=== PATIENT | male | born 1940 ===

== ENCOUNTER 2023-02-26 10:13 | Inpatient (IN) ==
[2023-02-26] MEDS ORDERED: Heparin 1,000 UNIT/ML 10 ml (10,000 UNITS) CATHLAB/DIALYSIS ONE ×2 (10:33→11:22)
[2023-02-26] MEDS ORDERED: Heparin 2 UNITS/ML 1000 mls 3,000 ML IV ONE (10:33)
[2023-02-26] MEDS ORDERED: Lidocaine 1% MPF 5 ML VIAL ONE (10:34)
[2023-02-26] MEDS ORDERED: niCARdipine 0.1MG/ML IVPREMIX 20 MG/200 ML BAG IV ONE (10:34)
[2023-02-26] MEDS ORDERED: nitroGLYCERIN DRIP 25,000 MCG/250 ML BTL ONE (10:34)
[2023-02-26] MEDS ORDERED: Iohexol 350 (CONTRAST) 200 ML MDV IV ONE (10:35)
[2023-02-26] MEDS ORDERED: fentaNYL 100 mcg/2 ml 50 MCG/ML VIAL ONE (10:35)
[2023-02-26] MEDS ORDERED: Midazolam 5 mg/5 ml VIAL 1 mg/ml 5 ml VIAL (5 mg) ONE (10:35)
[2023-02-26] MEDS ORDERED: Iohexol 350 (CONTRAST) 100 ML PAK IV ONE ×2 (10:35→12:50)
[2023-02-26] MEDS ORDERED: Midazolam 10 mg/10 ml VIAL 1 mg/ml 10 ml VIAL (10 mg) IV SLOW PU ONE (10:41)
[2023-02-26] MEDS ORDERED: Naloxone 0.4 mg VIAL 0.4 mg/ml 1 ml VIAL IV PUSH PRN (10:41)
[2023-02-26] MEDS ORDERED: fentaNYL 100 mcg/2 ml 50 MCG/ML VIAL IV SLOW PU ONE (10:41)
[2023-02-26] MEDS ORDERED: Flumazenil 0.5 mg/5 ml 0.1 MG/ML 5 ml VIAL IV PRN (10:41)
[2023-02-26] MEDS ORDERED: Atropine 0.1 MG/ML 10 ml SYR (1 mg) ONE ×2 (11:06→14:32)
[2023-02-26] MEDS ORDERED: Eptifibatide IV (Load dose) 2 MG/ML 10 ml VIAL ONE ×2 (11:31→11:47)
[2023-02-26] MEDS ORDERED: Nitroglycerin 0.6 mg TAB SL PRN (13:24)
[2023-02-26] MEDS ORDERED: Atropine 1 MG/ML INJ 1 ML VIAL IV PUSH PRN (13:24)
[2023-02-26] MEDS ORDERED: Ondansetron 4 mg VIAL 2 MG/ML 2 ml VIAL IV PRN (13:24)
[2023-02-26] MEDS ORDERED: Dextrose 50% Syringe 50 ml 25 GM/50 ML SYRINGE IV PUSH PRN (14:34)
[2023-02-26 14:45] LABS: High Sensitivity Troponin 1 Hr > 24000 pg/mL (<20)
[2023-02-26 14:52] LABS: Anion Gap 7 mmol/L (2-16); Blood Urea Nitrogen 65 mg/dL (6-24); CO2 Carbon Dioxide 20 mmol/L (22-32); Calcium 7.8 mg/dL (8.6-10.3); Chloride 111 mmol/L (101-111); Creatinine, Serum 1.49 mg/dL (0.67-1.17); Glucose 135 mg/dL (70-100); Magnesium 2.2 mg/dL (1.9-2.7); Phosphorus 4.1 mg/dL (2.5-5.0); Potassium 4.3 mmol/L (3.5-5.0); Sodium 138 mmol/L (135-145)
[2023-02-26] MEDS ORDERED: Remdesivir 100 mg Vial 200 MG in NS 0.9% 250 ml 210 ML IV ONE (16:15)
[2023-02-26 16:16] LABS: INR 1.48 (0.88-1.18)
[2023-02-26 16:28] LABS: Magnesium 2.3 mg/dL (1.9-2.7); Phosphorus 4.2 mg/dL (2.5-5.0)
[2023-02-26 17:11] LABS: TSH Ultra Thyroid Stim Horm 1.34 mcIU/mL (0.34-5.60)
[2023-02-26] MEDS: Lactated Ringers 1000 ml BAG 1,000 ML IV SCH (20:10)
[2023-02-26] MEDS: Heparin 5000 UNITS/ML 1 mL VIAL SUBCUT SCH (21:24)
[2023-02-27 03:45] LABS: Hematocrit 33.5 % (38-53); Hemoglobin 11.4 g/dL (13.2-16.3); Mean Corpuscular Hemoglobin 31.1 pg (27-33); Mean Corpuscular Hgb Conc 34.1 g/dL (31-36); Mean Corpuscular Volume 91.1 fL (80-97); Mean Platelet Volume 8.3 fL (7.5-11.2); Platelet Count 152 10^3/uL (150-450); Red Blood Count 3.68 10^6/uL (4.06-5.63); Red Cell Distribution Width 16.3 % (12-17); White Blood Count 12.4 10^3/uL (3.6-10.2)
[2023-02-27 03:50] LABS: INR 1.43 (0.88-1.18)
[2023-02-27 03:59] LABS: Magnesium 2.2 mg/dL (1.9-2.7); Phosphorus 3.4 mg/dL (2.5-5.0)
[2023-02-27 04:01] LABS: Albumin 3.3 g/dL (3.2-5.2); Albumin/Globulin Ratio 1.7 (1-3); Calcium 8.3 mg/dL (8.6-10.3); Creatinine, Serum 1.01 mg/dL (0.67-1.17); Globulin 1.9 g/dL (2-4); HDL Cholesterol 35.5 mg/dL; Total Bilirubin 0.4 mg/dL (0.2-1.0); Total Protein 5.2 g/dL (6.4-8.9); eGFR CKD-EPI 73.3 (>60)
[2023-02-27 04:22] LABS: ABS Basophils 0.1 10^3/uL (0.0-0.1); ABS Monocytes 1.7 10^3/uL (0.0-1.1); ABS Neutrophils 9.6 10^3/uL (1.5-7.6); ABS Nucleated RBC 0.06 10^3/ul; Eosinophil % 0.1 %; Lymphocyte % 8.4 %; Nucleated Red Blood Cells % 0.5 /100 WBC (0.0-0.4)
[2023-02-27] MEDS ORDERED: Acetaminophen IV 1 GM/100ML 1,000 MG/100 ML BAG IV PRN (04:41)
[2023-02-27] MEDS: Heparin 5000 UNITS/ML 1 mL VIAL SUBCUT SCH (05:27)
[2023-02-27] MEDS: Lactated Ringers 1000 ml BAG 1,000 ML IV SCH (06:00)
[2023-02-27] MEDS ORDERED: Heparin 5000 UNITS/ML 1 mL VIAL IV SCH (12:00)
[2023-02-27 13:22] LABS: ABS Lymphocytes 0.8 10^3/uL (1.0-4.8); ABS Monocytes 1.3 10^3/uL (0.0-1.1); ABS Neutrophils 7.9 10^3/uL (1.5-7.6); ABS Nucleated RBC 0.01 10^3/ul; Eosinophil % 0.1 %; Hematocrit 33.2 % (38-53); Hemoglobin 11.3 g/dL (13.2-16.3); Lymphocyte % 8.3 %; Mean Corpuscular Hemoglobin 31.8 pg (27-33); Mean Corpuscular Hgb Conc 34.1 g/dL (31-36); Mean Corpuscular Volume 93.2 fL (80-97); Nucleated Red Blood Cells % 0.1 /100 WBC (0.0-0.4); Platelet Count 142 10^3/uL (150-450); Red Blood Count 3.56 10^6/uL (4.06-5.63); Red Cell Distribution Width 16.3 % (12-17); White Blood Count 10.1 10^3/uL (3.6-10.2)
[2023-02-27] MEDS: Heparin DRIP 25,000 UNITS BAG 25,000 UNITS/500 ML BAG IV SCH (13:29)
[2023-02-27 13:36] LABS: Creatinine, Serum 0.84 mg/dL (0.67-1.17)
[2023-02-27] MEDS ORDERED: NS 0.9% 250 ml 250 ML IV ONE (15:10)
[2023-02-27] MEDS ORDERED: Atropine 0.1 MG/ML 10 ml SYR (1 mg) IV PUSH PRN (15:18)
[2023-02-27] MEDS ORDERED: Lactated Ringers 1000 ml BAG 1,000 ML IV ONE (15:52)
[2023-02-27] MEDS ORDERED: Benzocaine (plain) Lozenge 15 MG PO PRN (20:25)
[2023-02-27] MEDS: Remdesivir 100 mg Vial 100 MG in NS 0.9% 250 ml 230 ML IV SCH (20:36)
[2023-02-28 05:57] LABS: ABS Basophils 0.1 10^3/uL (0.0-0.1); ABS Eosinophils 0.1 10^3/uL (0.0-0.5); ABS Monocytes 1.2 10^3/uL (0.0-1.1); ABS Neutrophils 6.4 10^3/uL (1.5-7.6); ABS Nucleated RBC 0.01 10^3/ul; Eosinophil % 0.8 %; Hematocrit 30.4 % (38-53); Hemoglobin 10.6 g/dL (13.2-16.3); Mean Corpuscular Hemoglobin 31.6 pg (27-33); Mean Corpuscular Hgb Conc 34.7 g/dL (31-36); Mean Corpuscular Volume 91.1 fL (80-97); Mean Platelet Volume 7.8 fL (7.5-11.2); Nucleated Red Blood Cells % 0.2 /100 WBC (0.0-0.4); Platelet Count 140 10^3/uL (150-450); Red Blood Count 3.34 10^6/uL (4.06-5.63); Red Cell Distribution Width 16.3 % (12-17); White Blood Count 8.6 10^3/uL (3.6-10.2)
[2023-02-28 06:08] LABS: INR 1.61 (0.88-1.18)
[2023-02-28 06:15] LABS: Albumin 2.9 g/dL (3.2-5.2); Albumin/Globulin Ratio 1.6 (1-3); Calcium 7.7 mg/dL (8.6-10.3); Creatinine, Serum 0.71 mg/dL (0.67-1.17); Globulin 1.8 g/dL (2-4); Potassium 3.6 mmol/L (3.5-5.0); Total Bilirubin 0.6 mg/dL (0.2-1.0); Total Protein 4.7 g/dL (6.4-8.9); eGFR CKD-EPI 90.5 (>60)
[2023-02-28] MEDS ORDERED: Potassium Chlor 20 meq TAB.ER PO ONE (08:56)
[2023-02-28] MEDS: Heparin DRIP 25,000 UNITS BAG 25,000 UNITS/500 ML BAG IV SCH (13:25)
[2023-02-28] MEDS: Remdesivir 100 mg Vial 100 MG in NS 0.9% 250 ml 230 ML IV SCH (22:33)
[2023-03-01 04:32] LABS: ABS Eosinophils 0.1 10^3/uL (0.0-0.5); ABS Lymphocytes 0.9 10^3/uL (1.0-4.8); ABS Monocytes 1.2 10^3/uL (0.0-1.1); ABS Neutrophils 6.4 10^3/uL (1.5-7.6); ABS Nucleated RBC 0.01 10^3/ul; Hematocrit 33.2 % (38-53); Hemoglobin 11.3 g/dL (13.2-16.3); Lymphocyte % 10.8 %; Mean Corpuscular Hgb Conc 34.2 g/dL (31-36); Mean Corpuscular Volume 93.6 fL (80-97); Mean Platelet Volume 7.6 fL (7.5-11.2); Nucleated Red Blood Cells % 0.1 /100 WBC (0.0-0.4); Platelet Count 157 10^3/uL (150-450); Red Blood Count 3.55 10^6/uL (4.06-5.63); Red Cell Distribution Width 16.3 % (12-17); White Blood Count 8.6 10^3/uL (3.6-10.2)
[2023-03-01 04:44] LABS: INR 1.53 (0.88-1.18)
[2023-03-01 04:51] LABS: Albumin 3.1 g/dL (3.2-5.2); Albumin/Globulin Ratio 1.7 (1-3); Calcium 7.8 mg/dL (8.6-10.3); Creatinine, Serum 0.76 mg/dL (0.67-1.17); Globulin 1.8 g/dL (2-4); Potassium 3.8 mmol/L (3.5-5.0); Total Bilirubin 0.7 mg/dL (0.2-1.0); Total Protein 4.9 g/dL (6.4-8.9); eGFR CKD-EPI 88.6 (>60)
[2023-03-01] MEDS ORDERED: Potassium Chlor 20 meq TAB.ER PO ONE (05:27)
[2023-03-01] MEDS ORDERED: ceFAZolin 2 GM in NS PREMIX 2 GM/100 ML BAG IVPB ONE (10:11)
[2023-03-01] MEDS ORDERED: NS 0.9% 1000 ml BAG 1,000 ML IV SCH ×2 (10:15→17:45)
[2023-03-01 10:30] LABS: Magnesium 1.9 mg/dL (1.9-2.7)
[2023-03-01] MEDS ORDERED: ceFAZolin 2 GM/50 ML BAG IV ONE (11:00)
[2023-03-01] MEDS ORDERED: Heparin 5000 UNITS/ML 1 mL VIAL IV SCH (11:00)
[2023-03-01] MEDS: Heparin DRIP 25,000 UNITS BAG 25,000 UNITS/500 ML BAG IV SCH (12:05)
[2023-03-01] MEDS ORDERED: Haloperidol 5 mg/ml SDV IV/IM 5 MG/ML AMP ONE ×2 (20:16→21:40)
[2023-03-01] MEDS ORDERED: Haloperidol 5 mg/ml SDV IV/IM 5 MG/ML AMP IV SLOW PU ONE (20:30)
[2023-03-01] MEDS: Remdesivir 100 mg Vial 100 MG in NS 0.9% 250 ml 230 ML IV SCH (21:15)
[2023-03-01] MEDS: Haloperidol 5 mg/ml SDV IV/IM 5 MG/ML AMP IV SLOW PU PRN (21:50)
[2023-03-02] MEDS: Heparin DRIP 25,000 UNITS BAG 25,000 UNITS/500 ML BAG IV SCH (01:20)
[2023-03-02] MEDS ORDERED: NS 0.9% 1000 ml BAG 1,000 ML IV SCH ×2 (04:00→07:00)
[2023-03-02] MEDS: Haloperidol 5 mg/ml SDV IV/IM 5 MG/ML AMP IV SLOW PU PRN (04:38)
[2023-03-02 04:39] LABS: ABS Lymphocytes 0.8 10^3/uL (1.0-4.8); ABS Monocytes 1.4 10^3/uL (0.0-1.1); ABS Neutrophils 7.4 10^3/uL (1.5-7.6); ABS Nucleated RBC 0.03 10^3/ul; Eosinophil % 0.2 %; Hematocrit 33.4 % (38-53); Hemoglobin 11.5 g/dL (13.2-16.3); Lymphocyte % 8.7 %; Mean Corpuscular Hemoglobin 31.8 pg (27-33); Mean Corpuscular Hgb Conc 34.5 g/dL (31-36); Mean Corpuscular Volume 92.2 fL (80-97); Mean Platelet Volume 7.7 fL (7.5-11.2); Nucleated Red Blood Cells % 0.3 /100 WBC (0.0-0.4); Platelet Count 181 10^3/uL (150-450); Red Blood Count 3.62 10^6/uL (4.06-5.63); White Blood Count 9.7 10^3/uL (3.6-10.2)
[2023-03-02 04:58] LABS: Albumin 3.3 g/dL (3.2-5.2); Albumin/Globulin Ratio 1.7 (1-3); Calcium 8.2 mg/dL (8.6-10.3); Creatinine, Serum 0.73 mg/dL (0.67-1.17); Potassium 4.2 mmol/L (3.5-5.0); Total Bilirubin 0.8 mg/dL (0.2-1.0); Total Protein 5.3 g/dL (6.4-8.9); eGFR CKD-EPI 89.7 (>60)
[2023-03-02 04:59] LABS: INR 1.51 (0.88-1.18)
[2023-03-02] MEDS ORDERED: ceFAZolin 2 GM PREMIX 2 GM/50 ML BAG IV ONE (07:00)
[2023-03-02] MEDS: Remdesivir 100 mg Vial 100 MG in NS 0.9% 250 ml 230 ML IV SCH (21:25)
[2023-03-03] MEDS ORDERED: Buffered Lidocaine 1% SYRIN 1 ml INTRADERM ONE (06:00)
[2023-03-03] MEDS ORDERED: NS 0.9% 1000 ml BAG 1,000 ML IV SCH (06:00)
[2023-03-03 07:11] LABS: ABS Eosinophils 0.1 10^3/uL (0.0-0.5); ABS Lymphocytes 0.9 10^3/uL (1.0-4.8); ABS Monocytes 1.2 10^3/uL (0.0-1.1); ABS Neutrophils 6.6 10^3/uL (1.5-7.6); ABS Nucleated RBC 0.01 10^3/ul; Eosinophil % 1.1 %; Hematocrit 37.2 % (38-53); Hemoglobin 12.5 g/dL (13.2-16.3); Lymphocyte % 10.3 %; Mean Corpuscular Hgb Conc 33.6 g/dL (31-36); Mean Corpuscular Volume 95.2 fL (80-97); Nucleated Red Blood Cells % 0.1 /100 WBC (0.0-0.4); Platelet Count 106 10^3/uL (150-450); Red Blood Count 3.91 10^6/uL (4.06-5.63); Red Cell Distribution Width 16.8 % (12-17); White Blood Count 8.8 10^3/uL (3.6-10.2)
[2023-03-03 07:12] LABS: Albumin 3.2 g/dL (3.2-5.2); Calcium 8.2 mg/dL (8.6-10.3); Potassium 4.3 mmol/L (3.5-5.0); Total Bilirubin 0.9 mg/dL (0.2-1.0)
[2023-03-03 07:18] LABS: Albumin/Globulin Ratio 1.4 (1-3); Creatinine, Serum 0.69 mg/dL (0.67-1.17); Globulin 2.3 g/dL (2-4); Total Protein 5.5 g/dL (6.4-8.9); eGFR CKD-EPI 91.3 (>60)
[2023-03-03 07:38] LABS: INR 1.46 (0.88-1.18)
[2023-03-03] MEDS ORDERED: ceFAZolin 2 GM in NS PREMIX 2 GM/100 ML BAG IVPB ONE (08:00)
[2023-03-03] MEDS ORDERED: fentaNYL 100 mcg/2 ml 50 MCG/ML VIAL ONE (08:44)
[2023-03-03] MEDS ORDERED: Lidocaine 2% PF 5 ML VIAL ONE (08:44)
[2023-03-03] MEDS ORDERED: Succinylcholine 200 mg VIAL 20 mg/ml 10 ml VIAL (200 mg) ONE (08:44)
[2023-03-03] MEDS ORDERED: Phenylephrine IV 10 MG/ML 1 ml VIAL ONE (08:44)
[2023-03-03] MEDS ORDERED: Rocuronium 50 mg VIAL 10 mg/ml 5 ml VIAL (50 mg) ONE (08:45)
[2023-03-03] MEDS ORDERED: Propofol 10 MG/ML 20 ML BTL ONE (08:47)
[2023-03-03] MEDS ORDERED: Prochlorperazine 5 mg/ml 2 ml VIAL (10 mg) IV PRN (08:57)
[2023-03-03] MEDS ORDERED: fentaNYL 100 mcg/2 ml 50 MCG/ML VIAL IV PRN (08:57)
[2023-03-03] MEDS ORDERED: Naloxone 0.4 mg VIAL 0.4 mg/ml 1 ml VIAL IV PRN (08:57)
[2023-03-03] MEDS ORDERED: Lidocaine 1% VIAL 10 MG/ML VIAL 30 ML ONE (09:22)
[2023-03-03] MEDS ORDERED: Iohexol 300 (CONTRAST) 10 ML SDV ONE ×2 (09:23→10:09)
[2023-03-03] MEDS: ceFAZolin VIAL 1 GM in NS 0.9% 50 ML 50 ML IVPB SCH (16:57)
[2023-03-03] MEDS: Senna TAB 8.6 mg TAB PO SCH (16:58)
[2023-03-04] MEDS: ceFAZolin VIAL 1 GM in NS 0.9% 50 ML 50 ML IVPB SCH ×2 (02:46→09:10)
[2023-03-04 07:24] LABS: Hemoglobin 12.7 g/dL (13.2-16.3); Mean Corpuscular Hemoglobin 31.3 pg (27-33); Mean Corpuscular Hgb Conc 33.6 g/dL (31-36); Mean Corpuscular Volume 93.4 fL (80-97); Mean Platelet Volume 7.5 fL (7.5-11.2); Platelet Count 224 10^3/uL (150-450); Red Blood Count 4.07 10^6/uL (4.06-5.63); White Blood Count 11.7 10^3/uL (3.6-10.2)
[2023-03-04 07:31] LABS: ABS Basophils 0.1 10^3/uL (0.0-0.1); ABS Eosinophils 0.1 10^3/uL (0.0-0.5); ABS Lymphocytes 0.8 10^3/uL (1.0-4.8); ABS Monocytes 1.6 10^3/uL (0.0-1.1); ABS Neutrophils 9.1 10^3/uL (1.5-7.6); Lymphocyte % 6.7 %
[2023-03-04] MEDS: Senna TAB 8.6 mg TAB PO SCH (09:08)
[2023-03-04] MEDS: Polyethylene Glycol 3350 17 GM PACKET PO PRN (10:36)
[2023-03-05] MEDS: Polyethylene Glycol 3350 17 GM PACKET PO PRN (09:27)
[2023-03-05] MEDS: Senna TAB 8.6 mg TAB PO SCH (09:29)
[2023-03-05] MEDS ORDERED: Lactated Ringers 1000 ml BAG 1,000 ML IV SCH (15:00)
[2023-03-05 18:34] LABS: PCO2 Arterial 25 mmHg (35-45); PO2 Arterial 92 mmHg (80-100)
[2023-03-05] MEDS ORDERED: Magnesium Hydroxide LIQ 30 ML UDC PO ONE (20:07)
[2023-03-06 06:34] LABS: ABS Eosinophils 0.1 10^3/uL (0.0-0.5); ABS Lymphocytes 1.1 10^3/uL (1.0-4.8); ABS Monocytes 1.2 10^3/uL (0.0-1.1); ABS Nucleated RBC 0.01 10^3/ul; Eosinophil % 1.4 %; Hematocrit 37.3 % (38-53); Hemoglobin 12.8 g/dL (13.2-16.3); Lymphocyte % 11.4 %; Mean Corpuscular Hemoglobin 31.3 pg (27-33); Mean Corpuscular Hgb Conc 34.4 g/dL (31-36); Mean Corpuscular Volume 91.1 fL (80-97); Mean Platelet Volume 7.2 fL (7.5-11.2); Nucleated Red Blood Cells % 0.1 /100 WBC (0.0-0.4); Platelet Count 248 10^3/uL (150-450); Red Cell Distribution Width 16.5 % (12-17); White Blood Count 9.5 10^3/uL (3.6-10.2)
[2023-03-06] MEDS: Senna TAB 8.6 mg TAB PO SCH (10:23)
[2023-03-06] MEDS: Cholecalciferol (VIT D3) 1,000 unit TAB PO SCH (12:58)
[2023-03-07 07:03] LABS: Calcium 8.8 mg/dL (8.6-10.3); Creatinine, Serum 0.76 mg/dL (0.67-1.17); Potassium 4.3 mmol/L (3.5-5.0); eGFR CKD-EPI 88.6 (>60)
[2023-03-07] MEDS: Cholecalciferol (VIT D3) 1,000 unit TAB PO SCH (07:55)
[2023-03-07] MEDS: Senna TAB 8.6 mg TAB PO SCH (07:55)
[2023-03-07] MEDS: Polyethylene Glycol 3350 17 GM PACKET PO PRN (08:03)
[2023-03-07] MEDS ORDERED: NS 0.9% 250 ml 250 ML IV ONE (10:30)
[2023-03-07] MEDS ORDERED: NS 0.9% 1000 ml BAG 1,000 ML IV ONE (11:19)
[2023-03-07] MEDS ORDERED: NS 0.9% 1000 ml BAG 1,000 ML IV SCH (11:30)
[2023-03-08 06:29] LABS: ABS Eosinophils 0.1 10^3/uL (0.0-0.5); ABS Monocytes 1.3 10^3/uL (0.0-1.1); ABS Neutrophils 8.9 10^3/uL (1.5-7.6); Calcium 8.2 mg/dL (8.6-10.3); Eosinophil % 0.9 %; Hemoglobin 12.7 g/dL (13.2-16.3); Lymphocyte % 9.2 %; Mean Corpuscular Hemoglobin 31.4 pg (27-33); Mean Corpuscular Hgb Conc 33.5 g/dL (31-36); Mean Corpuscular Volume 93.7 fL (80-97); Mean Platelet Volume 7.2 fL (7.5-11.2); Platelet Count 243 10^3/uL (150-450); Potassium 4.4 mmol/L (3.5-5.0); Red Blood Count 4.05 10^6/uL (4.06-5.63); Red Cell Distribution Width 15.9 % (12-17); White Blood Count 11.4 10^3/uL (3.6-10.2)
[2023-03-08 06:34] LABS: Creatinine, Serum 0.74 mg/dL (0.67-1.17); eGFR CKD-EPI 89.3 (>60)
[2023-03-08] MEDS: Senna TAB 8.6 mg TAB PO SCH (08:13)
[2023-03-08] MEDS: Cholecalciferol (VIT D3) 1,000 unit TAB PO SCH (08:13)
[2023-03-09 07:03] LABS: ABS Basophils 0.1 10^3/uL (0.0-0.1); ABS Eosinophils 0.1 10^3/uL (0.0-0.5); ABS Lymphocytes 1.1 10^3/uL (1.0-4.8); ABS Monocytes 1.3 10^3/uL (0.0-1.1); ABS Neutrophils 8.1 10^3/uL (1.5-7.6); Eosinophil % 0.9 %; Hematocrit 36.7 % (38-53); Hemoglobin 12.6 g/dL (13.2-16.3); Lymphocyte % 10.4 %; Mean Corpuscular Hgb Conc 34.5 g/dL (31-36); Mean Corpuscular Volume 92.8 fL (80-97); Platelet Count 260 10^3/uL (150-450); Red Blood Count 3.95 10^6/uL (4.06-5.63); Red Cell Distribution Width 15.7 % (12-17); White Blood Count 10.7 10^3/uL (3.6-10.2)
[2023-03-09 07:32] LABS: Calcium 8.5 mg/dL (8.6-10.3); Creatinine, Serum 0.79 mg/dL (0.67-1.17); Potassium 4.2 mmol/L (3.5-5.0); eGFR CKD-EPI 87.6 (>60)
[2023-03-09] MEDS: Cholecalciferol (VIT D3) 1,000 unit TAB PO SCH (09:48)
[2023-03-09] MEDS: Senna TAB 8.6 mg TAB PO SCH (09:48)
[2023-03-10] MEDS: Senna TAB 8.6 mg TAB PO SCH (11:13)
[2023-03-10] MEDS: Cholecalciferol (VIT D3) 1,000 unit TAB PO SCH (11:13)
[2023-03-10] MEDS: Polyethylene Glycol 3350 17 GM PACKET PO SCH (20:01)
[2023-03-10] MEDS: Magnesium Hydroxide LIQ 30 ML UDC PO SCH (20:01)
[2023-03-11] MEDS: Cholecalciferol (VIT D3) 1,000 unit TAB PO SCH (08:34)
[2023-03-11] MEDS: Polyethylene Glycol 3350 17 GM PACKET PO SCH (08:34)
[2023-03-11] MEDS: Magnesium Hydroxide LIQ 30 ML UDC PO SCH (08:34)
[2023-03-11] MEDS ORDERED: Senna TAB 8.6 mg TAB PO SCH (09:00)
[2023-03-11 11:04] VITALS: BP 112/62
== END 2023-03-11 14:15 | disposition home or self-care (01) | DRG 242 ==
LOC: ED 10:13 → CHICATH 10:40 → ICU 13:49 → SUATTDRO 13:49 → MEDTELE 03-02 21:04
PROVIDERS: ADMIT Internal Medicine; ATTEND Internal Medicine